=== PATIENT | male | born 1960 | race African-American/Black ===

== ENCOUNTER 2017-12-09 21:46 | Emergency (ER) | payer OTHER ==
[2017-12-09] MEDS: DEXAMETHASONE 10 MG/ML 1 ML INJ IM (22:50)
== END 2017-12-09 23:21 | disposition home or self-care (01) ==
LOC: FTE 21:46
DX: R06.02 Shortness of breath (principal); I10 Essential (primary) hypertension; F17.210 Nicotine dependence, cigarettes, uncomplicated
CPT/HCPCS: 96372; 99284-25